=== PATIENT | female | born 1990 | race Hispanic/Latino ===

== ENCOUNTER 2016-11-03 06:23 | Emergency (ER) | payer SELFPAY ==
[2016-11-03 07:06] LABS: Basophils % (Auto) 0.4 % (0.0-1.8); Eosinophils % (Auto) 1.1 % (0.0-4.3); Hematocrit 40.4 % (30.3-42.9); Hemoglobin 13.1 gm/dl (10.1-14.3); Mean Corpuscular HGB Conc 33 % (30-34); Mean Corpuscular Hemoglobin 26 pg (28-32); Mean Corpuscular Volume 81 fl (79-97); Platelet Count 276 K/mm3 (140-440); Red Blood Count 4.99 M/mm3 (3.65-5.03); Red Cell Distribution Width 14.5 % (13.2-15.2); White Blood Count 15.9 K/mm3 (4.5-11.0)
[2016-11-03 07:22] LABS: Blood Urea Nitrogen 10 mg/dL (7-17); Calcium 9.3 mg/dL (8.4-10.2); Carbon Dioxide 25 mmol/L (22-30); Glucose 95 mg/dL (65-100); Sodium 135 mmol/L (137-145)
[2016-11-03] MEDS ORDERED: TYLENOL ONE (07:53)
[2016-11-03] MEDS ORDERED: TYLENOL PO ONE (07:53)
[2016-11-03 08:02] LABS: Urine Drugs of Abuse Note Disclamer
[2016-11-03 08:49] LABS: Bacteria,Urine 1+ /HPF (Negative); Bilirubin,Urine NEG (Negative); Blood,Urine NEG (Negative); Ketones,Urine 20 mg/dL (Negative); Leukocyte Esterase,Urine NEG (Negative); Mucus,Urine 2+ /HPF; Nitrite,Urine NEG (Negative); Protein,Urine <15 mg/dL mg/dL (Negative); Urobilinogen,Urine < 2.0 mg/dL (<2.0)
[2016-11-03 10:31] LABS: Anion Gap 18 mmol/L; Potassium 3.7 mmol/L (3.6-5.0)
--- NOTE | 2016-11-03 15:12 | Emergency Department Report ---
ED Psych HPI - General Chief Complaint: Psych Stated Complaint: MH/ EAR AND THROAT PAIN Time Seen by Provider: 11/03/16 10:51 Source: patient Mode of arrival: Ambulatory Limitations: No Limitations - History of Present Illness Initial Comments: 26-year-old female with a past medical history of bipolar disorder and substance abuse presents to the hospital complaining of homelessness and suicidal ideation. Patient has been suicidal 3 weeks. Patient's plan is to jump out in front of a car. She also is requesting detox from amphetamine. Last use was yesterday. Ken states the patient complained of sore throat about her ear pain. Patient denies this during my examination denies any physical complaints. She denies hallucinations. Patient is homeless - Related Data Previous Rx's Medication Instructions Recorded Last Taken Type FLUoxetine [PROzac] 20 mg PO QAM #30 capsule 02/19/16 Unknown Rx hydrOXYzine PAMOATE [Vistaril] 25 mg PO Q8HR PRN #30 capsule 02/19/16 Unknown Rx risperiDONE [RisperDAL] 1 mg PO QHS #30 tablet 02/19/16 Unknown Rx Allergies Allergy/AdvReac Type Severity Reaction Status Date / Time No Known Allergies Allergy Verified 02/19/16 08:35 ED Review of Systems ROS: Stated complaint: MH/ EAR AND THROAT PAIN Other details as noted in HPI Comment: All other systems reviewed and negative Other: Constitutional: No fevers chills Eyes: No eye pain visual changes ENT: No ear pain or throat pain Neck: Denies pain Respiratory: Denies cough wheezing shortness of breath Cardiovascular: Denies chest pain, palpitations, syncope GI: Denies abdominal pain, nausea, vomiting, diarrhea : Denies dysuria Musculoskeletal: Denies back pain Skin: Denies rash, lesions, erythema Neurologic: Denies headache, numbness, weakness Psychiatric:as per hpi ED Past Medical Hx - Past Medical History Previous Medical History?: Yes Hx Psychiatric Treatment: Yes (Depression, Bipolar) - Surgical History Past Surgical History?: Yes Additional Surgical History: PILONADAL SURGERY - Social History Smoking Status: Current Every Day Smoker Substance Use Type: Alcohol, Marijuana, Methamphetamines - Medications Home Medications: Home Medications Medication Instructions Recorded Confirmed Last Taken Type FLUoxetine [PROzac] 20 mg PO QAM #30 capsule 02/19/16 Unknown Rx hydrOXYzine PAMOATE [Vistaril] 25 mg PO Q8HR PRN #30 capsule 02/19/16 Unknown Rx risperiDONE [RisperDAL] 1 mg PO QHS #30 tablet 02/19/16 Unknown Rx ED Physical Exam - General Limitations: No Limitations - Other Other exam information: General: No limitations, patient is alert in no acute distress Head exam: Atraumatic, normocephalic Eyes exam: Normal appearance ENT: Moist mucous membrane Neck exam: Normal inspection, full range of motion Respiratory exam: Clear to auscultation bilateral, no wheezes, rales, crackles Cardiovascular: Normal rate and rhythm Abdomen: Soft, nondistended, and nontender, with normal bowel sounds, no rebound, or guarding Extremity: Full range of motion normal inspection no deformity Back: Normal Inspection, full range of motion, no tenderness Neurologic: Alert, oriented x3, cranial nerves intact, no motor or sensory deficit Psychiatric: normal affect, normal mood Skin: Warm, dry, intact ED Course Vital Signs 11/03/16 11/03/16 11/03/16 06:34 10:57 10:58 Temperature 98.3 F 98.0 F Pulse Rate 88 83 Respiratory 18 16 16 Rate Blood Pressure 129/82 Blood Pressure 116/73 [Left] O2 Sat by Pulse 99 99 99 Oximetry - Consultations Consultation #1: 11/03/16 Mental health consult ED Medical Decision Making - Lab Data Result diagrams: 11/03/16 06:50 11/03/16 06:50 Lab Results 11/03/16 11/03/16 11/03/16 Range/Units 06:50 06:50 06:50 WBC (4.5-11.0) K/mm3 RBC (3.65-5.03) M/mm3 Hgb (10.1-14.3) gm/dl Hct (30.3-42.9) % MCV (79-97) fl MCH (28-32) pg MCHC (30-34) % RDW (13.2-15.2) % Plt Count (140-440) K/mm3 Lymph % (Auto) (13.4-35.0) % [place] % (Auto) (0.0-7.3) % Eos % (Auto) (0.0-4.3) % Baso % (Auto) (0.0-1.8) % Lymph # (1.2-5.4) K/mm3 [place] # (0.0-0.8) K/mm3 Eos # (0.0-0.4) K/mm3 Baso # (0.0-0.1) K/mm3 Seg Neutrophils % (40.0-70.0) % Seg Neutrophils # (1.8-7.7) K/mm3 Sodium 135 L (137-145) mmol/L Potassium 3.7 (3.6-5.0) mmol/L Chloride 96.0 L (98-107) mmol/L Carbon Dioxide 25 (22-30) mmol/L Anion Gap 18 mmol/L BUN 10 (7-17) mg/dL Creatinine 0.4 L (0.7-1.2) mg/dL Estimated GFR > 60 ml/min BUN/Creatinine Ratio 25.00 % Glucose 95 (65-100) mg/dL Calcium 9.3 (8.4-10.2) mg/dL HCG, Qual Negative (Negative) Urine Color (Yellow) Urine Turbidity (Clear) Urine pH (5.0-7.0) Ur Specific [place] (1.003-1.030) Urine Protein (Negative) mg/dL Urine Glucose (UA) (Negative) mg/dL Urine Ketones (Negative) mg/dL Urine Blood (Negative) Urine Nitrite (Negative) Urine Bilirubin (Negative) Urine Urobilinogen (<2.0) mg/dL Ur Leukocyte Esterase (Negative) Urine WBC (Auto) (0.0-6.0) /HPF Urine RBC (Auto) (0.0-6.0) /HPF U Epithel Cells (Auto) (0-13.0) /HPF Urine Bacteria (Auto) (Negative) /HPF Amorphous Crystals Urine Mucus /HPF Urine Opiates Screen Urine Methadone Screen Ur Barbiturates Screen Ur Phencyclidine Scrn Ur Amphetamines Screen U Benzodiazepines Scrn Urine Cocaine Screen U Marijuana (THC) Screen Drugs of Abuse Note Plasma/Serum Alcohol < 0.01 (0-0.07) gm% 11/03/16 11/03/16 11/03/16 Range/Units 06:50 07:53 07:53 WBC 15.9 H (4.5-11.0) K/mm3 RBC 4.99 (3.65-5.03) M/mm3 Hgb 13.1 (10.1-14.3) gm/dl Hct 40.4 (30.3-42.9) % MCV 81 (79-97) fl MCH 26 L (28-32) pg MCHC 33 (30-34) % RDW 14.5 (13.2-15.2) % Plt Count 276 (140-440) K/mm3 Lymph % (Auto) 10.9 L (13.4-35.0) % [place] % (Auto) 5.1 (0.0-7.3) % Eos % (Auto) 1.1 (0.0-4.3) % Baso % (Auto) 0.4 (0.0-1.8) % Lymph # 1.7 (1.2-5.4) K/mm3 [place] # 0.8 (0.0-0.8) K/mm3 Eos # 0.2 (0.0-0.4) K/mm3 Baso # 0.1 (0.0-0.1) K/mm3 Seg Neutrophils % 82.5 H (40.0-70.0) % Seg Neutrophils # 13.1 H (1.8-7.7) K/mm3 Sodium (137-145) mmol/L Potassium (3.6-5.0) mmol/L Chloride (98-107) mmol/L Carbon Dioxide (22-30) mmol/L Anion Gap mmol/L BUN (7-17) mg/dL Creatinine (0.7-1.2) mg/dL Estimated GFR ml/min BUN/Creatinine Ratio % Glucose (65-100) mg/dL Calcium (8.4-10.2) mg/dL HCG, Qual (Negative) Urine Color Yellow (Yellow) Urine Turbidity Slightly-cloudy (Clear) Urine pH 6.0 (5.0-7.0) Ur Specific [place] 1.019 (1.003-1.030) Urine Protein <15 mg/dl (Negative) mg/dL Urine Glucose (UA) Neg (Negative) mg/dL Urine Ketones 20 (Negative) mg/dL Urine Blood Neg (Negative) Urine Nitrite Neg (Negative) Urine Bilirubin Neg (Negative) Urine Urobilinogen < 2.0 (<2.0) mg/dL Ur Leukocyte Esterase Neg (Negative) Urine WBC (Auto) 6.0 (0.0-6.0) /HPF Urine RBC (Auto) 5.0 (0.0-6.0) /HPF U Epithel Cells (Auto) 6.0 (0-13.0) /HPF Urine Bacteria (Auto) 1+ (Negative) /HPF Amorphous Crystals Few Urine Mucus 2+ /HPF Urine Opiates Screen Presumptive negative Urine Methadone Screen Presumptive negative Ur Barbiturates Screen Presumptive negative Ur Phencyclidine Scrn Presumptive negative Ur Amphetamines Screen Presumptive positive U Benzodiazepines Scrn Presumptive negative Urine Cocaine Screen Presumptive negative U Marijuana (THC) Screen Presumptive positive Drugs of Abuse Note Disclamer Plasma/Serum Alcohol (0-0.07) gm% - Medical Decision Making Patient medically clear for psychiatric admission. Awaiting acceptance - Differential Diagnosis drug abuse, homelessness, depression, substance abuse Critical Care Time: No Critical care attestation.: If time is entered above; I have spent that time in minutes in the direct care of this critically ill patient, excluding procedure time. ED Disposition Clinical Impression: Suicidal ideation, Amphetamine abuse, Homeless, Medical clearance for psychiatric admission Disposition: [id number]/TX-65 PSY HOSP/PSY UNIT Is pt being admited?: No Condition: Stable Time of Disposition: 15:19 (awaiting acceptance)
[2016-11-04] MEDS ORDERED: TYLENOL ONE ×2 (10:47→20:48)
[2016-11-04] MEDS ORDERED: TYLENOL PO ONE ×2 (10:50→19:58)
--- NOTE | 2016-11-04 15:06 | Consultation ---
History of Present Illness - Reason for Consult Consult date: 11/04/16 Reason for consult: Mental Health Evaluation Requesting physician: KALI URIBE - Chief Complaint Chief complaint: "I will kill myself' - History of Present Psychiatric Illness 26-year-old female with a past psy history of depression and substance abuse presents to the hospital complaining of homelessness and suicidal ideation. Today patient is cooperative, but anxious during assessment. Patient stated that her life is all "messed up" because of her depression and substance abuse. She stated when she is not getting "high" her mood is awful (helpless, hopeless , and no energy). She stated using "meth" for the past couple years with periods of staying "clean" and then relapsing. She used 3 days ago (meth). She stated staying clean when she is incarcerated. She admits to excessive alcohol consumption (consume everday) (self-medicate) because of her depression. Her last drink was 2 days ago. She stated that she took Remeron in the past for depression. She stated if she was discharged today she would walk into ongoing traffic. She admitted to attempting suicide in the past. Patient is adamant about going to group home rehab services. She denies HI's, AVH's, but admit to sleep disturbance. She rate her depression 6/10, with 10 being the worse. Patient is concerned about her future once discharged. Medications and Allergies Allergies Allergy/AdvReac Type Severity Reaction Status Date / Time No Known Allergies Allergy Verified 02/19/16 08:35 Home Medications Medication Instructions Recorded Confirmed Last Taken Type No Known Home Medications [No 11/03/16 11/03/16 Unknown History Reported Home Medications] Past psychiatric history - Past Medical History Past Medical History: No medical history Past Surgical History: No surgical history - past Psychiatric treatment and history Psych: Depression psychiatric treatment history: Multiple rehab services. She denies a fam psy hx. - Social History Social history: Lives alone, other (11th grade education) Mental Status Exam - Vital signs Last Vital Signs Temp 97.9 F 11/04/16 08:53 Pulse 79 11/04/16 08:53 Resp 16 11/04/16 08:54 BP 106/71 11/04/16 08:53 Pulse Ox 98 11/04/16 08:54 - Exam Narrative exam: ROS: (+) depression MSE: Appearance: cooperative, anxious Behavior: regular eye contact Speech: regular rate and tone Mood: "worried" Affect: labile Thought Process: circumstantial Thought Content: denies HI's and AVH's Motor Activity: ambulatory Cognition: A/Ox 3 Insight: limited Judgment: limited Results Result Diagrams: 11/03/16 06:50 11/03/16 06:50 All other labs normal. Assessment and Plan Assessment and plan: Impression: Historical Dx: Depression. MDD severe type, Substance Use DO ( amphetamines/marijuana), Alcohol Use DO, LINSEY. Today patient is cooperative, but anxious during assessment. Patient has SI's. Patient positive for amphetamines/ marijuana. No acute withdrawals noted (etoh). Patient is homeless. DDx: R/O Bipolar Recommendation/Plan: Continue 1013 with placement to inpatient psy services. Start Remeron 30 mg PO HS for depression/sleep consolidation and Vistaril 25 mg PO BID for anxiety. Discussed possible suicidality/medication induced bernabe reference Remeron with patient. Discussed the importance to abstain from recreational drug use and alcohol consumption with patient.
[2016-11-04] MEDS: VISTARIL PO SCH (21:57)
[2016-11-04] MEDS ORDERED: REMERON PO SCH (22:00)
[2016-11-05] MEDS: VISTARIL PO SCH ×2 (10:40→22:06)
--- NOTE | 2016-11-05 16:06 | Progress Note ---
Subjective - Reason for Consult Consult date: 11/05/16 Reason for consult: follow up - Chief Complaint Chief complaint: "I'm the same" 26-year-old female with a past psy history of depression and substance abuse presented to the hospital complaining of homelessness and suicidal ideation. Today patient is cooperative, but complains of severe anxiety. She acknowledges the effects of coming of methamphetamine will include insomnia and agitation. She reports suicidal ideation, problems sleeping, irritability, mood swings, and depression. She reports being on Seroquel in the past and that it was helpful. She stated if she was discharged today she would walk into ongoing traffic. She admitted to attempting suicide in the past.No homicidal ideation or signs of psychosis. Mental Status Exam - Vital signs Last Vital Signs Temp 98.4 F 11/05/16 10:00 Pulse 89 11/05/16 10:00 Resp 18 11/05/16 13:01 BP 112/82 11/05/16 10:00 Pulse Ox 98 11/05/16 13:01 Assessment and Plan ROS: (+) depression MSE: Appearance: cooperative Behavior: regular eye contact Speech: regular rate and tone Mood: irritable, depressed Affect: labile Thought Process: circumstantial Thought Content: SI present, no HI. denies AVH Motor Activity: ambulatory Cognition: A/Ox 3 Insight: limited Judgment: limited Results Result Diagrams: 11/03/16 06:50 11/03/16 06:50 All other labs normal. Assessment and Plan Assessment and plan: Impression: Historical Dx: Depression. MDD severe type, Substance Use DO ( amphetamines/marijuana), Alcohol Use DO, LINSEY. Today patient is cooperative, but complains of anxiety not addressed by Vistaril. She reports a history of being diagnosed with bipolar disorder but does not describe manic episodes lasting lasting longer than 7 days or manic/hypomanic symptoms while abstinent of illicit substance use. Patient has suicidal ideation. Patient positive for amphetamines/marijuana (admits to methamphetamine use. No acute withdrawals noted (etoh). Patient is homeless. DDx: R/O Bipolar Recommendation/Plan: Continue 1013 with placement to inpatient psy services. Decrease Remeron to 15 mg PO HS and add Seroquel 100mg hs for mood. She was informed of risk and benefits, including metabolic side effects. She voiced awareness. Vistaril 25 mg increased to tid for anxiety.
[2016-11-05] MEDS ORDERED: REMERON PO SCH (17:05)
[2016-11-05] MEDS: REMERON PO SCH (22:10)
[2016-11-06] MEDS: VISTARIL PO SCH ×3 (11:01→22:10)
--- NOTE | 2016-11-06 13:07 | Progress Note ---
Subjective - Reason for Consult Consult date: 11/06/16 Reason for consult: follow up - Chief Complaint Chief complaint: "I'm the same" 26-year-old female with a past psy history of depression and substance abuse presented to the hospital complaining of homelessness and suicidal ideation. Today patient is cooperative, but irritable. She reports no concerns with taking the Seroquel last night. She acknowledges the effects of coming of methamphetamine will include insomnia and agitation. She reports suicidal ideation, problems sleeping, irritability, mood swings, and depression. She continues to report if she was discharged today she would walk into ongoing traffic. She admitted to attempting suicide in the past.No homicidal ideation but she reports auditory hallucinations of her name being called. Mental Status Exam - Vital signs Last Vital Signs Temp 98.4 F 11/06/16 09:20 Pulse 78 11/06/16 09:20 Resp 18 11/06/16 09:20 BP 113/72 11/06/16 09:20 Pulse Ox 97 11/06/16 09:20 Assessment and Plan MSE: ROS: (+) depression (+) AH of name being called Appearance: cooperative Behavior: regular eye contact Speech: regular rate and tone Mood: irritable, depressed Affect: labile Thought Process: circumstantial Thought Content: SI present, no HI. AH Motor Activity: ambulatory Cognition: A/Ox 3 Insight: limited Judgment: limited Results Result Diagrams: 11/03/16 06:50 11/03/16 06:50 All other labs normal. Assessment and Plan Assessment and plan: Impression: Historical Dx: Depression. MDD severe type, Substance Use DO ( amphetamines/marijuana), Alcohol Use DO, LINSEY. Today patient is cooperative, but complains of anxiety not addressed by Vistaril. She reports a history of being diagnosed with bipolar disorder but does not describe manic episodes lasting lasting longer than 7 days or manic/hypomanic symptoms while abstinent of illicit substance use. Patient has suicidal ideation and auditory hallucinations. Patient positive for amphetamines/marijuana (admits to methamphetamine use. No acute withdrawals noted (etoh). Patient is homeless. DDx: R/O Bipolar Recommendation/Plan: Continue 1013 with placement to inpatient psy services. Continue Remeron to 15 mg PO HS as the lower dose may be more helpful for sleep. Continue Seroquel 100mg hs for mood and psychotic symptoms. She was informed of risk and benefits, including metabolic side effects. She voiced awareness. Vistaril 25 mg increased to tid for anxiety.
[2016-11-06] MEDS: REMERON PO SCH (22:08)
[2016-11-07] MEDS: VISTARIL PO SCH ×3 (09:28→22:50)
--- NOTE | 2016-11-07 13:04 | Progress Note ---
Subjective - Reason for Consult Consult date: 11/07/16 Reason for consult: Psychiatry Follow-up - Chief Complaint Chief complaint: "I need rehab" 26-year-old female with a past psy history of depression and substance abuse presented to the hospital complaining of homelessness and suicidal ideation. Today patient is calm and cooperative during assessment. She stated that her SI' s has not decreased. She stated that her thought are still racing. She acknowledge the effects of coming of methamphetamine will include insomnia and agitation. She stated that her sleep is still erratic and she rate her depression 6/10, with 10 being worse. She denies any side effects of her medications. She still admit to AH's intermittently. Mental Status Exam - Vital signs Last Vital Signs Temp 98.4 F 11/07/16 08:26 Pulse 97 H 11/07/16 08:26 Resp 18 11/07/16 08:26 BP 118/73 11/07/16 08:26 Pulse Ox 100 11/07/16 08:26 - Exam Narrative exam: MSE: Appearance: calm, cooperative Behavior: regular eye contact Speech: regular rate and tone Mood: "I don't know" Affect: labile Thought Process: circumstantial Thought Content: denies HI's and AVH's Motor Activity: ambulatory Cognition: A/Ox 3 Insight: limited Judgment: limited Assessment and Plan mpression: Historical Dx: Depression and Bipolar DO. MDD severe type, Substance Use DO (amphetamines/marijuana), Alcohol Use DO, LINSEY. Today patient is calm and cooperative. Patient has SI's. Patient positive for amphetamines/marijuana. No acute withdrawals noted (etoh). Patient is homeless. Recommendation/Plan: Continue 1013 with placement to inpatient psy services. Continue Remeron 15 mg PO HS for depression/sleep consolidation, Vistaril 25 mg PO TID for anxiety and modified Seroquel to 200 mg PO HS for mood. Discussed possible suicidality/medication induced bernabe reference Remeron with patient. Discussed the possible metabolic side effects of Seroquel with patient. Discussed the importance to abstain from recreational drug use and alcohol consumption with patient.
[2016-11-07] MEDS ORDERED: BENADRYL PO ONE ×2 (17:26→17:40)
[2016-11-07] MEDS: REMERON PO SCH (22:50)
[2016-11-08] MEDS: VISTARIL PO SCH ×3 (08:53→20:00)
[2016-11-08] MEDS ORDERED: BENADRYL PO ONE (09:45)
--- NOTE | 2016-11-08 10:56 | Progress Note ---
Subjective - Reason for Consult Consult date: 11/08/16 Reason for consult: Psychiatry Follow-up - Chief Complaint Chief complaint: "I want to leave for rehab" 26-year-old female with a past psy history of depression and substance abuse presented to the hospital complaining of homelessness and suicidal ideation. Today patient is calm and cooperative during assessment. She stated that her SI' s has not decreased. She stated being irritable because she is ready to go to rehab. She stated that she slept better last night. Patient reports generalized itching, benadryl 25 mg PO was ordered one time. She rate her depression 6/10, with 10 being the worse. She still admit to AH's intermittently. Mental Status Exam - Vital signs Last Vital Signs Temp 98.6 F 11/07/16 20:30 Pulse 72 11/07/16 20:30 Resp 18 11/07/16 20:30 BP 112/72 11/07/16 20:30 Pulse Ox 98 11/07/16 20:30 - Exam Narrative exam: MSE: Appearance: calm, cooperative, irritable Behavior: regular eye contact Speech: regular rate and tone Mood: "so so" Affect: labile Thought Process: circumstantial Thought Content: denies HI's and AVH's Motor Activity: ambulatory Cognition: A/Ox 3 Insight: limited Judgment: limited Assessment and Plan Impression: Historical Dx: Depression and Bipolar DO. MDD severe type, Substance Use DO (amphetamines/marijuana), Alcohol Use DO, LINSEY. Today patient is calm, cooperative, and irritable. Patient has SI's. Patient positive for amphetamines/marijuana. No acute withdrawals noted (etoh). Patient is homeless. Recommendation/Plan: Continue 1013 with placement to inpatient psy services. Continue Remeron 15 mg PO HS for depression/sleep consolidation, Vistaril 25 mg PO TID for anxiety and Seroquel 200 mg PO HS for mood. Discussed possible suicidality/medication induced bernabe reference Remeron with patient. Discussed the possible metabolic side effects of Seroquel with patient. Discussed the importance to abstain from recreational drug use and alcohol consumption with patient.
[2016-11-08] MEDS: REMERON PO SCH (22:46)
[2016-11-09] MEDS ORDERED: BENADRYL PO ONE ×4 (01:00→18:14)
[2016-11-09] MEDS: VISTARIL PO SCH ×2 (08:35→14:34)
--- NOTE | 2016-11-09 17:08 | Progress Note ---
Subjective - Reason for Consult Consult date: 11/09/16 Reason for consult: follow up - Chief Complaint Chief complaint: "I want to get out of here." 26-year-old female with a past psy history of depression and substance abuse presented to the hospital complaining of homelessness and suicidal ideation. Today patient is calm and cooperative during assessment. She denies suicidal ideation. She states she plans to abstain from substance use and wants to go to a rehabilitation. She states as her primary objective for coming to the hospital. She stated that she slept better last night. Patient reports generalized itching states she gets hives when she stressed. She denies auditory hallucinations. She plans to go to her cousin's house if she leaves the hospital and follow-up with a women's treatment program. Mental Status Exam - Vital signs Last Vital Signs Temp 97.8 F 11/09/16 09:42 Pulse 87 11/09/16 09:42 Resp 20 11/09/16 13:43 BP 118/86 11/09/16 09:42 Pulse Ox 98 11/09/16 13:43 Assessment and Plan MSE: Appearance: cooperative Behavior: regular eye contact Speech: Regular rate and rhythm Mood: "Good" Affect: Appropriate Thought Process: Linear and goal oriented Thought Content: denies SI. Denies homicidal ideation and AVH Motor Activity: No abnormal movements Cognition: A/Ox 3 Insight: Improved, fair Judgment: Fair I. This screening and assessment is based on information collected from the following sources: Patient II. SUICIDE RISK SCREENING (within last 30 days): A.) Suicidal thoughts/behaviors: When he initially presented to the emergency department he expressed suicidal ideation. The crisis has subsided. He currently does not have suicidal ideation. *Describe details of recent ideation or attempt: She reported suicidal ideation with a plan to jump in traffic on admission. She currently denies suicidal ideation. She says her goal was to go to rehabilitation to avoid incarceration. SUICIDE RISK ASSESSMENT III. FACTORS THAT INCREASE RISK: A.) Demographic and Substance Use Factors: Using methamphetamine B.) Current/Recent Factors (within past 3 months): Psychosocial/Environmental Factors: Unstable housing Physical Illness: None Cognitive/Psychological Factors: Recent methamphetamine use C.) Historical Factors: None D.) Diagnostic/Symptom/Treatment Factors: She no longer has suicidal ideation. No auditory hallucinations. E.) Acute Risk Factor Severity Mild Other factors for this individual that increase risk: None IV. FACTORS THAT DECREASE RISK: Resilience/Protective Factors: Other factors for this individual that decrease risk: Patient is not intoxicated and plans to continue abstinence from illicit substances. She is also trying to avoid incarceration by seeking treatment. V. Clinician's Formulation of Risk and Determination of level of Care: The acute symptoms are resolved and she no longer meets criteria for 1013. A supportive and structured environment with a long-term rehabilitation center is preferred. Resources were provided for her to look into it, as these programs are voluntary. Estimation of Imminent Risk: Low risk Determination of Level of Care based on Suicide Risk: Outpatient psychiatric treatment and 12-step peer support meetings until she can find a women's substance abuse program Narrative description of clinical reasoning. (This must be completed on all patients): The patient initially presented to the hospital having used methamphetamine the previous day. At that time she reported suicidal ideation with a plan to jump in traffic. She has since denied suicidal ideation. She says her goal of treatment was to get into rehabilitation. . Plan and Interventions based on Suicide Risk: Rescind 1013 and follow-up with outpatient mental health Resources provided for women's substance abuse programs VII. Discharge/After Hours Support Plan: Call 911 for suicidal or homicidal ideation. Assessment and plan: Impression: Crisis has resolved. No suicidal ideation reported and there are no acute safety concerns reported by the patient or staff. Methamphetamine use disorder There is no indication to go to an inpatient facility for detox. Recommendation/Plan: Rescind 1013 and follow-up with outpatient mental health Resources provided for women's substance abuse programs
--- NOTE | 2016-11-09 19:30 | Emergency Department Report ---
HPI - General Chief Complaint: Psych Time Seen by Provider: 11/03/16 10:51 ED Past Medical Hx - Past Medical History Previous Medical History?: Yes Hx Psychiatric Treatment: Yes (Depression, Bipolar) - Surgical History Past Surgical History?: Yes Additional Surgical History: PILONADAL SURGERY - Social History Smoking Status: Current Every Day Smoker Substance Use Type: Alcohol, Marijuana, Methamphetamines - Medications Home Medications: Home Medications Medication Instructions Recorded Confirmed Last Taken Type No Known Home Medications [No 11/03/16 11/03/16 Unknown History Reported Home Medications] ED Review of Systems ROS: Stated complaint: MH/ EAR AND THROAT PAIN Other details as noted in HPI Physical Exam - Physical Exam Vital Signs: Vital Signs 11/03/16 11/03/16 11/03/16 06:34 10:57 10:58 Temperature 98.3 F 98.0 F Pulse Rate 88 83 Respiratory 18 16 16 Rate Blood Pressure 129/82 Blood Pressure 116/73 [Left] O2 Sat by Pulse 99 99 99 Oximetry 11/03/16 11/04/16 11/04/16 20:10 08:53 08:54 Temperature 97.9 F Pulse Rate 86 79 Respiratory 18 16 16 Rate Blood Pressure Blood Pressure 128/67 106/71 [Left] O2 Sat by Pulse 100 98 98 Oximetry 11/04/16 11/05/16 11/05/16 22:00 10:00 13:01 Temperature 98.5 F 98.4 F Pulse Rate 75 89 Respiratory 18 20 18 Rate Blood Pressure Blood Pressure 90/60 112/82 [Left] O2 Sat by Pulse 98 99 98 Oximetry 11/05/16 11/06/16 11/06/16 22:00 09:20 22:00 Temperature 99.0 F 98.4 F 99.1 F Pulse Rate 88 78 84 Respiratory 18 18 18 Rate Blood Pressure Blood Pressure 112/68 113/72 115/78 [Left] O2 Sat by Pulse 98 97 97 Oximetry 11/07/16 11/07/16 11/08/16 08:26 20:30 09:15 Temperature 98.4 F 98.6 F 98.4 F Pulse Rate 97 H 72 64 Respiratory 18 18 16 Rate Blood Pressure Blood Pressure 118/73 112/72 116/70 [Left] O2 Sat by Pulse 100 98 98 Oximetry 11/08/16 11/08/16 11/09/16 15:03 19:31 09:42 Temperature 98.7 F 97.8 F Pulse Rate 96 H 87 Respiratory 20 16 20 Rate Blood Pressure Blood Pressure 126/78 118/86 [Left] O2 Sat by Pulse 98 98 98 Oximetry 11/09/16 13:43 Temperature Pulse Rate Respiratory 20 Rate Blood Pressure Blood Pressure [Left] O2 Sat by Pulse 98 Oximetry ED Course Vital Signs 11/03/16 11/03/16 11/03/16 06:34 10:57 10:58 Temperature 98.3 F 98.0 F Pulse Rate 88 83 Respiratory 18 16 16 Rate Blood Pressure 129/82 Blood Pressure 116/73 [Left] O2 Sat by Pulse 99 99 99 Oximetry 11/03/16 11/04/16 11/04/16 20:10 08:53 08:54 Temperature 97.9 F Pulse Rate 86 79 Respiratory 18 16 16 Rate Blood Pressure Blood Pressure 128/67 106/71 [Left] O2 Sat by Pulse 100 98 98 Oximetry 11/04/16 11/05/16 11/05/16 22:00 10:00 13:01 Temperature 98.5 F 98.4 F Pulse Rate 75 89 Respiratory 18 20 18 Rate Blood Pressure Blood Pressure 90/60 112/82 [Left] O2 Sat by Pulse 98 99 98 Oximetry 11/05/16 11/06/16 11/06/16 22:00 09:20 22:00 Temperature 99.0 F 98.4 F 99.1 F Pulse Rate 88 78 84 Respiratory 18 18 18 Rate Blood Pressure Blood Pressure 112/68 113/72 115/78 [Left] O2 Sat by Pulse 98 97 97 Oximetry 11/07/16 11/07/16 11/08/16 08:26 20:30 09:15 Temperature 98.4 F 98.6 F 98.4 F Pulse Rate 97 H 72 64 Respiratory 18 18 16 Rate Blood Pressure Blood Pressure 118/73 112/72 116/70 [Left] O2 Sat by Pulse 100 98 98 Oximetry 11/08/16 11/08/16 11/09/16 15:03 19:31 09:42 Temperature 98.7 F 97.8 F Pulse Rate 96 H 87 Respiratory 20 16 20 Rate Blood Pressure Blood Pressure 126/78 118/86 [Left] O2 Sat by Pulse 98 98 98 Oximetry 11/09/16 13:43 Temperature Pulse Rate Respiratory 20 Rate Blood Pressure Blood Pressure [Left] O2 Sat by Pulse 98 Oximetry ED Medical Decision Making - Lab Data Result diagrams: 11/03/16 06:50 11/03/16 06:50 - Medical Decision Making Discussed current mental state with patient patient is not suicidal or homicidal. She feels good and is ready to go home. Psychiatry is rescinded her 1013. She has referrals to outpatient detox program provided by psychiatry. Plan to discharge. Critical care attestation.: If time is entered above; I have spent that time in minutes in the direct care of this critically ill patient, excluding procedure time. ED Disposition Clinical Impression: Suicidal ideation Disposition: DC-01 TO HOME OR SELFCARE Is pt being admited?: No Condition: Stable Instructions: Suicide Prevention for Adults (ED) Additional Instructions: Please follow up with the resources you've been given. Referrals: PRIMARY CARE [Primary Care Provider] - 3-5 Days
[2016-11-09 19:51] VITALS: BP 117/79
== END 2016-11-09 19:50 | disposition home or self-care (01) ==
LOC: EEVIPCON 06:23 → ED 06:23
DX: R45.851 Suicidal ideations (principal); F15.129 Other stimulant abuse with intoxication, unspecified; Z59.0 Homelessness
CPT/HCPCS: 36415; 80048; 80307; 81001; 84703; 85025; 99285; G0480; 80320; Q0177